=== PATIENT | female | born 1985 | race Caucasian/White ===

== ENCOUNTER 2016-10-11 05:15 | Day surgery (SDC) | payer BC ==
[2016-10-05 13:54] VITALS: BMI 41.3
[~2016-10-11 05:15] MED LIST: BUPIVACAINE HCL/PF 0.5% (5MG/ML) 10 ML VIAL IJ ONE; LIDOCAINE HCL 1%, 10 MG/ML (20ML VIAL) IJ ONE
[2016-10-11] MEDS ORDERED: LIDOCAINE HCL 1%, 10 MG/ML (20ML VIAL) ONE (07:12)
[2016-10-11] MEDS ORDERED: BUPIVACAINE HCL/PF 0.5% (5MG/ML) 10 ML VIAL ONE (07:12)
[2016-10-11] MEDS ORDERED: KETOROLAC TROMETHAMINE 30 MG/1 ML VIAL ONE (07:29)
[2016-10-11] MEDS ORDERED: ePHEDrine SULFATE 50 MG/1 ML AMPULE ONE (07:29)
[2016-10-11] MEDS ORDERED: SODIUM CHLORIDE 0.9% P/F 10 ML VIAL IJ ONE (07:29)
[2016-10-11] MEDS ORDERED: DEXAMETHASONE SOD PHOSPHATE 4 MG/1 ML VIAL ONE (07:29)
[2016-10-11] MEDS ORDERED: PROPOFOL 20 ML ONE ×2 (07:29)
[2016-10-11] MEDS ORDERED: CLINDAMYCIN PHOSPHATE 600 MG/4 ML VIAL ONE (07:29)
[2016-10-11] MEDS ORDERED: MIDAZOLAM HCL 2 MG/2 ML SINGLE DOSE VIAL ONE (07:30)
[2016-10-11] MEDS ORDERED: CLINDAMYCIN PHOSPHATE 600 MG/4 ML VIAL IVPB ONE (08:29)
--- NOTE | 2016-10-11 08:30 | HP ---
Satellite H - Chief Complaint Chief Complaint: right wrist mass - Past Medical History Allergies/Adverse Reactions: Allergies Allergy/AdvReac Type Severity Reaction Status Date / Time Penicillins Allergy Difficulty Verified 10/05/16 13:48 Breathing phenytoin sodium Allergy Difficulty Verified 10/05/16 13:48 [From Dilantin] Breathing phenytoin sodium extended Allergy Difficulty Verified 10/05/16 13:48 [From Dilantin] Breathing ...LMP: 09/17/16 - Current Medications Current Medications: Medication Instructions Recorded Norethindrone-E.estradiol-Iron 1 each PO DAILY 10/05/16 [Minastrin 24 Fe Chewable Tab] Hydrocodone/Acetaminophen 1 each PO Q6H #40 tablet MDD 4 10/11/16 [Hydrocodon-Acetaminoph 7.5-325] Satellite Physical Exam - Physical Examination Vital Signs: Vital Signs Period Temp Pulse Resp BP Sys/Quintero Pulse Ox Last 24 Hr 100 General Appearance: Well Nourished, Well Developed, Alert & Oriented x3 ENT: Clear Lung: Normal air movement Heart: Regular rate & rhythm Extremities: Other (right wrist- + mass, nvi) Neurological: Intact, Alert, Oriented Satellite Impression/Plan - Impression/Plan Impression: right wrist ganglion cyst Operative Procedure: right wrist ganglion cyst excision Date to be Performed: 10/11/16
[2016-10-11] MEDS ORDERED: LIDOCAINE HCL 1%, 10 MG/ML (20ML VIAL) IJ ONE (08:36)
[2016-10-11] MEDS ORDERED: BUPIVACAINE HCL/PF 0.5% (5MG/ML) 10 ML VIAL IJ ONE (08:36)
[2016-10-11] MEDS ORDERED: PROMETHAZINE HCL 25 MG/1 ML VIAL IVPUSH PRN (09:08)
[2016-10-11] MEDS ORDERED: ONDANSETRON 4 MG/2 ML VIAL IVPUSH PRN (09:08)
[2016-10-11] MEDS ORDERED: oxyCODONE HCL 5 MG TABLET PO PRN (09:08)
--- NOTE | 2016-10-11 09:10 | OP ---
Operative Note - Note: Operative Date: 10/11/16 Pre-Operative Diagnosis: right wrist mass, ganglion cyst Operation: excision mass/ganglion right wrist Post-Operative Diagnosis: Same as Pre-op Surgeon: Ousmane Ralph Anesthesiologist/BRAND DESIGNER: Rayo Almonte Jr. Anesthesia: General, Local Specimens Removed: mass/ganglion right wrist Estimated Blood Loss (mls): 0 Blood Volume Replaced (mls): 0 Fluid Volume Replaced (mls): 500 Operative Report Dictated: Yes
[2016-10-11] MEDS ORDERED: LACTATED RINGERS SOLUTION 1,000 ML IV SCH (09:15)
[2016-10-11 10:18] VITALS: TEMP 97.6
[2016-10-11 11:07] VITALS: BP 120/58; PULSE 67
--- NOTE | 2016-10-11 20:26 | OP ---
DATE OF OPERATION: 10/11/2016 PREOPERATIVE DIAGNOSIS: Right wrist mass, likely ganglion. POSTOPERATIVE DIAGNOSIS: Right wrist mass, likely ganglion. PROCEDURE: Excision, mass/ganglion, right wrist. SURGEON: Holli Diaz MD ASSISTANTS: None. ANESTHESIA: Rayo Almonte Jr., HEAT TREAT SUPERVISOR, MAC anesthesia, local injection of 15 mL 0.5% Marcaine and 1% lidocaine mix. DRAINS: None. SPECIMEN: Mass, right wrist. BLOOD LOSS: None. BLOOD GIVEN: None. FLUID REPLACEMENT: 500 mL. This patient is a 31-year-old female with a preoperative diagnosis of a mass on the radial aspect of the right wrist, likely a ganglion cyst. After understanding the potential risks, complications, alternatives, and benefits to surgical versus nonsurgical treatment, the patient elected to undergo this procedure. She understands that the mass may recur, she will have a scar, and she may have temporary or permanent paresthesias. The patient was brought to the operating room, peripheral IV placed, IV sedation given, 600 mg of clindamycin was given, MAC anesthesia was induced. The right upper extremity was prepped and draped in sterile fashion, elevated, exsanguinated with an Esmarch bandage, tourniquet inflated to 250 mmHg. A longitudinal incision was marked out over the mass and made with a number 15 scalpel blade. Subcutaneous hemostasis was achieved with the bipolar cautery. Circumferential dissection was done with the Littler scissors. All crossing neurovascular structures were protected and retracted with the blunt Sera retractor. The mass was quite large. At one point it popped. Classic ganglion cyst fluid was expressed. There was at least 8 mL of very thick classic ganglion cyst-like fluid. I was able to circumferentially dissect, find its stalk, and decapitate it at its base. The base was then cauterized. The specimen was passed off the field. The area was copiously irrigated and washed out. I was not able to see or feel any other abnormal tissue. Closure was done with 4-0 undyed Vicryl in the deep dermal layer. Final skin reapproximation was done with a running subcuticular 4-0 Biosyn stitch. The area was then washed and dried, covered with Steri-Strips, 4 x 4's, fluffs between the fingers, Webril, and Coban. The tourniquet was taken down after a total tourniquet time of 20 minutes. There were no complications during the case. The patient tolerated the procedure quite well, was brought to the ambulatory recovery in stable condition. HOLLI DIAZ M.D. [id number]
--- NOTE | 2016-10-12 12:17 | PATH ---
Surgical Pathology Report Patient Name: SALLY SANDERS Med. Rec. #: [id number] /Age/Gender: 1985 (Age: 31) / F Account: [id number] Location: [facility] [place] [facility] Taken: 10/11/2016 Received: 10/11/2016 Reported: 10/12/2016 Physicians: Ousmane Ralph M.D. Specimen(s) Received MASS OF RIGHT WRIST Clinical History Mass right wrist Final Diagnosis SOFT TISSUE, RIGHT WRIST, EXCISION: GANGLION CYST. Electronically Signed Tex Lemons M.D. Gross Description Received in formalin, labeled "mass right wrist," is a 2.5 x 1.3 x 0.8 cm lópez, intact cyst. The specimen is serially sectioned and retail sales representative sections are submitted in one cassette. /10/11/201610/11/2016
== END 2016-10-11 11:07 | disposition home or self-care (01) ==
LOC: JASU-SURG 05:15
PROVIDERS: ATTEND Orthopaedic Surgery
PROC: 0LB50ZZ Excision of Right Lower Arm and Wrist Tendon, Open Approach (ICD-10-PCS; principal; 2016-10-11 08:00)
DX: M67.431 Ganglion, right wrist (principal)
CPT/HCPCS: 84703; 88304-TC; 94760

== ENCOUNTER 2018-04-27 00:05 | Emergency (ER) | payer BC ==
--- NOTE | 2018-04-27 01:35 | PDOC ---
History of Present Illness <Alexa Tate - Last Filed: 04/27/18 03:15> - History of Present Illness Initial Comments: The patient is a 32F with a history of seizure d/o (not on ppx) who presents with 4 days of N/V/D. She reports that Sunday she ate at [employer] and approx 6 hours afterwards she states she began to experience N/V/D. No others around her ate at this same place. She denies associated fevers/chills, chest pain, SOB, or changes in sensation. She endorses bloating but denies abdominal pain. She reports her nausea and diarrhea have been non-bloody. She has been attempting to hydrate with Gatorade and has tolerated intermittent chicken soup. 04/27/18 01:54 <Navjot Edward - Last Filed: 04/27/18 04:43> - General Chief Complaint: Vomiting/Diarrhea Stated Complaint: DIARRHEA/VOMITING Time Seen by Provider: 04/27/18 01:35 Past History <Alexa Tate - Last Filed: 04/27/18 03:15> - Past Medical History Seizures: Yes (last time 8 years, after head injury) - Immunization History Immunization Up to Date: Yes - Suicide/Smoking/Psychosocial Hx Smoking History: Never smoked Have you smoked in the past 12 months: No Hx Alcohol Use: Yes (occassional) Drug/Substance Use Hx: No Substance Use Type: None Hx Substance Use Treatment: No <Navjot Edward - Last Filed: 04/27/18 04:43> - Past Medical History Allergies/Adverse Reactions: Allergies Allergy/AdvReac Type Severity Reaction Status Date / Time Penicillins Allergy Difficulty Verified 04/27/18 01:35 Breathing phenytoin sodium Allergy Difficulty Verified 04/27/18 01:35 [From Dilantin] Breathing phenytoin sodium extended Allergy Difficulty Verified 04/27/18 01:35 [From Dilantin] Breathing Home Medications: Ambulatory Orders NK [No Known Home Medication] 04/27/18 Review of Systems - Review of Systems Able to Perform ROS?: Yes Comments:: GENERAL/CONSTITUTIONAL: No fever or chills. No weakness HEAD, EYES, EARS, NOSE AND THROAT: No change in vision. No ear pain or discharge. No sore throat CARDIOVASCULAR: No chest pain or shortness of breath RESPIRATORY: No cough, wheezing, or hemoptysis GASTROINTESTINAL: per HPI GENITOURINARY: No dysuria, frequency, or change in urination MUSCULOSKELETAL: No joint or muscle swelling or pain. No neck or back pain SKIN: No rash NEUROLOGIC: No headache, vertigo, loss of consciousness, or change in strength/ sensation ENDOCRINE: No increased thirst. No abnormal weight change HEMATOLOGIC/LYMPHATIC: No anemia, easy bleeding, or history of blood clots ALLERGIC/IMMUNOLOGIC: No hives or skin allergy 04/27/18 03:29 Is the patient limited Occitan proficient: No <Navjot Edward - Last Filed: 04/27/18 04:43> *Physical Exam - Vital Signs Last Vital Signs Temp Pulse Resp BP Pulse Ox 98.3 F 71 16 125/83 100 04/27/18 01:38 04/27/18 01:38 04/27/18 01:38 04/27/18 01:38 04/27/18 01:38 <Alexa Tate - Last Filed: 04/27/18 03:15> - Physical Exam Comments: GENERAL: Awake, alert, and fully oriented, in no acute distress HEAD: No signs of trauma, normocephalic, atraumatic EYES: PERRLA, EOMI, sclera anicteric, conjunctiva clear ENT: Hearing grossly normal, nares patent, oropharynx clear without exudates. Moist mucosa NECK: Normal ROM, supple LUNGS: No distress, speaks full sentences, clear to auscultation bilaterally HEART: Regular rate and rhythm, normal S1 and S2, no murmurs appreciated, peripheral pulses normal and equal bilaterally ABDOMEN: Soft, nontender, normoactive bowel sounds. No guarding, no rebound. No masses EXTREMITIES : Normal inspection, Normal range of motion, no edema. No clubbing or cyanosis NEUROLOGICAL: Cranial nerves II through XII grossly intact. Normal speech, normal gait, no focal sensorimotor deficits SKIN: Warm, Dry, normal turgor, no rashes 04/27/18 03:31 <Navjot Edward - Last Filed: 04/27/18 04:43> ED Treatment Course - LABORATORY CBC & Chemistry Diagram: 04/27/18 01:48 04/27/18 01:48 - ADDITIONAL ORDERS Additional order review: Laboratory Results 04/27/18 01:48 Sodium 138 Potassium 3.9 Chloride 103 Carbon Dioxide 28 Anion Gap 7 L BUN 9 Creatinine 0.8 Creat Clearance w eGFR > 60 Random Glucose 122 H Calcium 8.4 L Total Bilirubin 0.2 AST 13 L ALT 21 Alkaline Phosphatase 57 Total Protein 6.9 Albumin 3.6 04/27/18 01:48 RBC 3.72 MCV 94.8 MCHC 33.9 RDW 13.2 MPV 7.7 - Medications Given in the ED: ED Medications Discontinued Medications Generic Name Dose Route Start Last Admin Trade Name Naty PRN Reason Stop Dose Admin Ondansetron HCl 4 mg 04/27/18 01:46 04/27/18 02:05 Zofran - PO 04/27/18 01:47 4 mg ONCE ONE Administration Simethicone 80 mg 04/27/18 01:46 04/27/18 02:05 Mylicon - PO 04/27/18 01:47 80 mg ONCE ONE Administration Sodium Chloride 1,000 ml 04/27/18 01:55 04/27/18 02:05 Normal Saline - IV 04/27/18 01:56 1,000 ml ONCE ONE Administration <Alexa Tate - Last Filed: 04/27/18 03:15> - LABORATORY CBC & Chemistry Diagram: 04/27/18 01:48 04/27/18 01:48 <Navjot Edward - Last Filed: 04/27/18 04:43> Medical Decision Making - Medical Decision Making The patient is a 32F who presents with 4 days of N/V/D, likely gastritis ED Course CMP, CBC Zofran, Simethicone NS 1L IV once for hydration Patient with symptom improvement s/p zofran and simethicone Plan to complete NA infusion and D/C with PCP and GI f/u 04/27/18 03:06 Patient continues to feel improved Denies nausea Plan to DC patient with PCP f/u The patient understands and agrees with the plan of care as outlined above and that questions have been answered to their apparent satisfaction. The patient was instructed to follow up with their primary care physician, was given return precautions, and voiced understanding. Dispo: Home with PCP f/u 04/27/18 04:42 <Navjot Edward - Last Filed: 04/27/18 04:43> *DC/Admit/Observation/Transfer <Alexa Tate - Last Filed: 04/27/18 03:15> - Discharge Dispostion Decision to Admit order: No <Navjot Edward - Last Filed: 04/27/18 04:43> Diagnosis at time of Disposition: Gastroenteritis, Food poisoning - Discharge Dispostion Disposition: HOME Condition at time of disposition: Improved - Referrals Referrals: Marcial Johnson MD [Primary Care Provider] - - Patient Instructions Printed Discharge Instructions: DI for Food Poisoning, Gastritis Additional Instructions: You were seen today in the Emergency Department for gastritis/food poisoning. Please refer to the handouts provided at discharge. Follow up with your primary car physician in 1-3 days. Return to the Emergency Department if you experience fevers, worsening symptoms, or any new concerning symptoms. - Post Discharge Activity
[2018-04-27 01:42] VITALS: TEMP 98.3; BMI 34.7
[2018-04-27] MEDS ORDERED: ONDANSETRON 4 MG TABLET PO ONE (01:46)
[2018-04-27] MEDS ORDERED: SIMETHICONE 80 MG TAB.CHEW (FP) PO ONE (01:46)
[2018-04-27] MEDS ORDERED: ONDANSETRON *ODT* 4 MG TABLET ONE (01:54)
[2018-04-27] MEDS ORDERED: SODIUM CHLORIDE 0.9% 500 ML INFUS.BAG IV ONE (01:55)
[2018-04-27 01:58] LABS: HEMATOCRIT 35.2 % (32.4-45.2); MCH 32.2 pg (25.7-33.7); MCHC 33.9 g/dl (32.0-36.0); MEAN CELL VOLUME 94.8 fl (80-96); MEAN PLT VOLUME 7.7 fl (7.5-11.1); PLATELET COUNT 313 K/MM3 (134-434); RBC 3.72 M/mm3 (3.60-5.2); RDW 13.2 % (11.6-15.6); WHITE BLOOD COUNT 4.3 K/mm3 (4.0-10.0)
[2018-04-27 02:24] LABS: ALBUMIN 3.6 g/dl (3.4-5.0); ALK PHOS 57 U/L (45-117); ANION GAP 7 (8-16); BILIRUBIN,TOTAL 0.2 mg/dL (0.2-1.0); BLOOD UREA NITROGEN 9 mg/dL (7-18); CALCIUM 8.4 mg/dL (8.5-10.1); CHLORIDE 103 mmol/L (98-107); CO2 28 mmol/L (21-32); CREATININE 0.8 mg/dL (0.55-1.02); GLUCOSE,RANDOM 122 mg/dL (74-106); POTASSIUM 3.9 mmol/L (3.5-5.1); SGOT/AST 13 U/L (15-37); SGPT/ALT 21 U/L (12-78); SODIUM 138 mmol/L (136-145); TOT PROT 6.9 g/dl (6.4-8.2)
--- NOTE | 2018-04-27 02:35 | PDOC ---
Attending Attestation - HPI HPI: 04/27/18 03:52 The patient is a 32 year old female with a significant PMH of seizures who presents to the emergency department with episodes of vomiting for 4 days. The patient reports some associated nausea and diarrhea with her emesis episodes. She states that she ate food from a restaurant on Sunday and about 6 hours after she began to experience her symptoms. She states that she had 3 episodes of vomiting today and about 4 episodes of dark diarrhea today. She endorses some bloating. She denies any other symptoms. She denies any fever, chills, nausea, , constipation or urinary symptoms. She denies any chest pain, shortness of breath, headache and dizziness. The patient denies any other complaints PCP: Dr. Johnson Documentation prepared by David Cox, acting as ophthalmic medical assistant for Alexa Tate MD - Physicial Exam PE: 04/27/18 03:52 GENERAL: Awake, alert, and fully oriented, in no acute distress HEAD: No signs of trauma EYES: PERRLA, EOMI, sclera anicteric, conjunctiva clear ENT: Auricles normal inspection, hearing grossly normal, nares patent, oropharynx clear without exudates. Moist mucosa NECK: Normal ROM, supple, no lymphadenopathy, JVD, or masses LUNGS: Breath sounds equal, clear to auscultation bilaterally. No wheezes, and no crackles HEART: Regular rate and rhythm, normal S1 and S2, no murmurs, rubs or gallops ABDOMEN: Soft, nontender, normoactive bowel sounds. No guarding, no rebound. No masses EXTREMITIES: Normal range of motion, no edema. No clubbing or cyanosis. No cords, erythema, or tenderness NEUROLOGICAL: Cranial nerves II through XII grossly intact. Normal speech, normal gait SKIN: Warm, Dry, normal turgor, no rashes or lesions noted. <David Cox - Last Filed: 04/27/18 03:52> - Resident Resident Name: Navjot Edward - ED Attending Attestation I have performed the following: I have examined & evaluated the patient, The case was reviewed & discussed with the resident, I agree w/resident's findings & plan - Medical Decision Making 04/27/18 02:34 LABS NORMAL; EXAM NORMAL, VITALS NORMAL. 04/27/18 02:35 IMPRESSION: FOOD POISONING <Alexa Tate - Last Filed: 04/27/18 05:14>
[2018-04-27 03:19] VITALS: BP 109/68; PULSE 75
== END 2018-04-27 05:19 | disposition home or self-care (01) ==
LOC: JER 00:05
PROC: 3E0337Z Introduction of Electrolytic and Water Balance Substance into Peripheral Vein, Percutaneous Approach (ICD-10-PCS; principal; 2018-04-27)
DX: K52.9 Noninfective gastroenteritis and colitis, unspecified (principal); T62.91XA Toxic effect of unspecified noxious substance eaten as food, accidental (unintentional), initial encounter; Y92.511 Restaurant or cafe as the place of occurrence of the external cause
CPT/HCPCS: 36415; 80053; 85027; 99281-25

== ENCOUNTER 2018-06-12 15:24 | Emergency (ER) | payer BC ==
[2018-06-12 15:36] VITALS: BP 107/71; PULSE 66; TEMP 98.2; BMI 34.5
--- NOTE | 2018-06-12 16:44 | PDOC ---
History of Present Illness - General Chief Complaint: Pain, Acute Stated Complaint: INJURY Time Seen by Provider: 06/12/18 15:53 - History of Present Illness Initial Comments: 32-year-old female without comorbidities presents for evaluation of right third and fourth toe pain after a garbage can falling on her toe. 06/12/18 16:42 Past History - Past Medical History Allergies/Adverse Reactions: Allergies Allergy/AdvReac Type Severity Reaction Status Date / Time Penicillins Allergy Difficulty Verified 06/12/18 15:33 Breathing phenytoin sodium Allergy Difficulty Verified 06/12/18 15:33 [From Dilantin] Breathing Home Medications: Ambulatory Orders NK [No Known Home Medication] 04/27/18 COPD: No Seizures: Yes (last time 8 years, after head injury) - Immunization History Immunization Up to Date: Yes - Suicide/Smoking/Psychosocial Hx Smoking History: Never smoked Have you smoked in the past 12 months: No Hx Alcohol Use: No Drug/Substance Use Hx: No Substance Use Type: None Hx Substance Use Treatment: No Review of Systems - Review of Systems Musculoskeletal: Yes: See HPI, Joint Pain All Other Systems: Reviewed and Negative *Physical Exam - Vital Signs Last Vital Signs Temp Pulse Resp BP Pulse Ox 98.2 F 66 16 107/71 99 06/12/18 15:34 06/12/18 15:34 06/12/18 15:34 06/12/18 15:34 06/12/18 15:34 - Physical Exam Comments: 06/12/18 16:42 Right ankle skin color and temperature are normal range of motion is full there is no areas of tenderness throughout the ankle and foot. There is mild discomfort about the NTP joints of the second third and fourth toes there are no gross sensorimotor deficits she is neurovascularly intact range of motion is slightly decreased nose toes and painful ED Treatment Course - RADIOLOGY Radiology Studies Ordered: Category Date Time Status TOE(S) RIGHT [RAD] Stat Radiology 06/12/18 15:55 Ordered Medical Decision Making - Medical Decision Making Radiographs of the toes show no evidence of fracture trauma destructive process this is a contusion 06/12/18 16:43 *DC/Admit/Observation/Transfer Diagnosis at time of Disposition: Contusion, foot - Discharge Dispostion Disposition: HOME Condition at time of disposition: Stable Decision to Admit order: No - Referrals Referrals: Dilan Mccrary MD [Staff Physician] - - Patient Instructions Printed Discharge Instructions: Contusion Additional Instructions: He may weight-bear as tolerated with the [place] shoe follow-up with orthopedic surgery in 2-3 days for further evaluation and treatment options. Return to the emergency room should symptoms worsen or go unresolved. May take Tylenol for pain if needed. Take the Tylenol as directed. - Post Discharge Activity
== END 2018-06-12 16:51 | disposition home or self-care (01) ==
LOC: JERFT 15:24
DX: S90.31XA Contusion of right foot, initial encounter (principal); W20.8XXA Other cause of strike by thrown, projected or falling object, initial encounter; Y93.89 Activity, other specified; Y92.89 Other specified places as the place of occurrence of the external cause
CPT/HCPCS: 73660-TC-FY; 99281-25

== ENCOUNTER 2021-09-12 05:06 | Emergency (ER) | payer BC ==
[2021-09-12 05:59] VITALS: BP 113/76; PULSE 80; TEMP 98; BMI 38.4
[2021-09-13 10:07] LABS: SARS-CoV-2 NAA Detected (Not Detected)
== END 2021-09-12 11:27 | disposition home or self-care (01) ==
LOC: JER 05:06
DX: U07.1 COVID-19 (principal)
CPT/HCPCS: 99283-25; C9803; U0003; U0005

== ENCOUNTER 2022-03-28 00:24 | Emergency (ER) | payer OTHER ==
[2022-03-28 01:35] VITALS: BP 115/62; PULSE 73; TEMP 97.7; BMI 42.0
[2022-03-28] MEDS ORDERED: DEXAMETHASONE SOD PHOSPHATE 10 MG/1 ML VIAL IM ONE (05:53)
[2022-03-28] MEDS ORDERED: DEXAMETHASONE SOD PHOSPHATE 10 MG/1 ML VIAL ONE (06:14)
== END 2022-03-28 06:33 | disposition home or self-care (01) ==
LOC: JER 00:24
PROC: 3E023GC Introduction of Other Therapeutic Substance into Muscle, Percutaneous Approach (ICD-10-PCS; principal; 2022-03-28)
DX: U07.1 COVID-19 (principal)
CPT/HCPCS: 0241U-QW; 99284-25; J1100